=== PATIENT | female | born 1990 | race Caucasian/White ===

== ENCOUNTER 2023-07-01 06:19 | Day surgery (SDC) | payer BC ==
[~2023-07-01] VITALS: Ht 172.7 cm; Wt 69.1 kg
[~2023-07-01 06:19] MED LIST: AMPH1TAB2 PO; BUPR300T92 PO; CALC500T68 PO; ERGO500029 PO; FLUO40CA PO; MAGN400C PO; ZINC220CA PO
[2023-07-01] MEDS ORDERED: LR 1,000 ML IV SCH ×2 (06:40→09:10)
[2023-07-01] MEDS ORDERED: ceFAZolin SOD 2 GM in IV 1 EA IV ONE (07:00)
[2023-07-01] MEDS ORDERED: MIDAZOLAM INJ 2MG/2ML VIAL As Ordered ONE (07:06)
[2023-07-01] MEDS ORDERED: propofoL 200 MG/20 ML VIAL As Ordered ONE (07:06)
[2023-07-01] MEDS ORDERED: fentaNYL 100 MCG/2 ML INJECTION As Ordered ONE (07:06)
[2023-07-01] MEDS ORDERED: propofoL 500 MG/50 ML VIAL As Ordered ONE (07:06)
[2023-07-01] MEDS ORDERED: KETOROLAC 60MG 2ML VIAL As Ordered ONE (07:07)
[2023-07-01] MEDS ORDERED: ONDANSETRON 4MG 2ML VIAL As Ordered ONE (07:07)
[2023-07-01] MEDS ORDERED: LIDOCAINE 2% 100MG/5ML SDV (FOR ANES.) As Ordered ONE (07:07)
[2023-07-01] MEDS ORDERED: LIDOCAINE 1% SDV 30ML VIAL As Ordered ONE (07:23)
[2023-07-01] MEDS ORDERED: oxyCODONE 5MG TAB PO PRN (09:10)
[2023-07-01] MEDS ORDERED: HYDROMORPHONE HCL 0.5 MG/ 0.5 ML SYRINGE IV PRN (09:10)
[2023-07-01] MEDS ORDERED: fentaNYL 100 MCG/2 ML INJECTION IV PRN (09:10)
[2023-07-01] MEDS ORDERED: ONDANSETRON 4MG 2ML VIAL IV PRN (09:10)
[2023-07-01 10:12] VITALS: BP 114/62; TEMP 97.9; O2SAT 100
== END 2023-07-01 10:30 | disposition home or self-care (01) ==
LOC: M SDC 06:19
PROVIDERS: ATTEND Podiatrist Foot & Ankle Surgery
DX: M21.612 Bunion of left foot (principal); M20.12 Hallux valgus (acquired), left foot; G43.909 Migraine, unspecified, not intractable, without status migrainosus; F43.10 Post-traumatic stress disorder, unspecified; F41.9 Anxiety disorder, unspecified; F32.A Depression, unspecified; F90.9 Attention-deficit hyperactivity disorder, unspecified type; Z79.899 Other long term (current) drug therapy; Z91.040 Latex allergy status; Z88.5 Allergy status to narcotic agent
CPT/HCPCS: 28299; 81025; 97116; C1713; J0665; J0690; J1100; J1885; J2250; J2405; J3010